=== PATIENT | female | born 1960 | race Caucasian/White ===

== ENCOUNTER 2021-12-29 10:44 | Emergency (ER) | payer OTHER ==
[~2021-12-29] VITALS: Ht 157.5 cm; Wt 82.6 kg
--- NOTE | 2021-12-29 11:03 | NUR ---
[email or web address], medical screening exam in progress
[2021-12-29] MEDS ORDERED: CIPR7.5D EACH EAR (11:20)
--- NOTE | 2021-12-29 11:26 | NUR ---
Patient discharged to home in stable condition and sy gait. Written and verbal after care instructions given. Patient verbalized understanding and compliance of instructions. Stressed follow up with primary doctor and ENT doctor or return to ER for worsening s/s.
== END 2021-12-29 11:26 | disposition home or self-care (01) ==
LOC: ER 10:44
DX: H60.90 Unspecified otitis externa, unspecified ear (principal); Z86.16 Personal history of COVID-19
CPT/HCPCS: A4663

== ENCOUNTER 2025-03-22 13:38 | Emergency (ER) | payer OTHER ==
[~2025-03-22] VITALS: Ht 157.5 cm; Wt 84.4 kg
[~2025-03-22 13:38] MED LIST: CIPR7.5D EACH EAR
[2025-03-22] MEDS ORDERED: FLUT1BLS11 INH (13:51)
[2025-03-22] MEDS ORDERED: LEVO50TA8 PO (13:51)
[2025-03-22] MEDS ORDERED: ALEN70TA80 PO (13:51)
[2025-03-22] MEDS ORDERED: ROSU5TAB13 (13:51)
[2025-03-22] MEDS ORDERED: HYDR25TA86 (13:51)
[2025-03-22] MEDS ORDERED: MONT10TA33 PO (13:51)
[2025-03-22] MEDS ORDERED: PANT40TA49 PO (13:51)
[2025-03-22] MEDS ORDERED: LIDOCAINE 5% PATCH TD ONE (14:43)
[2025-03-22] MEDS ORDERED: KETOROLAC TROMETHAMINE 15 MG INJ ONE (14:43)
[2025-03-22] MEDS ORDERED: ONDANSETRON 4 MG/2 ML VIAL ONE (14:43)
[2025-03-22] MEDS ORDERED: MORPHINE SULFATE 4 MG/1 ML DISP.SYRIN ONE (14:44)
[2025-03-22] MEDS ORDERED: CYCLOBENZAPRINE HCL 10 MG TABLET ONE (14:44)
[2025-03-22] MEDS: IV NORMAL SALINE 1000 ML BAG IV ONE (14:56)
[2025-03-22] MEDS: CYCLOBENZAPRINE HCL 10 MG TABLET PO ONE (14:57)
[2025-03-22] MEDS: ONDANSETRON 4 MG/2 ML VIAL IV ONE (14:57)
[2025-03-22] MEDS: LIDOCAINE 5% PATCH TD ONE (14:57)
[2025-03-22] MEDS: MORPHINE SULFATE 4 MG/1 ML DISP.SYRIN IV ONE (14:57)
[2025-03-22] MEDS: KETOROLAC TROMETHAMINE 15 MG INJ IVP ONE (14:57)
[2025-03-22 15:09] LABS: BASOPHILS # (AUTO) 0.2 K/UL (0.0-0.2); BASOPHILS % (AUTO) 1.8 % (0.0-2.0); DIFFERENTIAL COMMENT 0; EOSINOPHILS # (AUTO) 0.2 K/uL (0.0-0.7); EOSINOPHILS % (AUTO) 2.2 % (0.0-7.0); HEMOGLOBIN 12.5 g/dL (10.9-14.3); LYMPHOCYTES # (AUTO) 2.4 K/uL (0.8-4.8); LYMPHOCYTES % (AUTO) 25.1 % (20.5-51.5); MEAN CORPUSCULAR HEMOGLOBIN 31.9 uug (24.7-32.8); MEAN CORPUSCULAR HGB CONC 36 g/dL (32.3-35.6); MEAN CORPUSCULAR VOLUME 89.7 fL (75.5-95.3); MONOCYTES # (AUTO) 0.9 K/uL (0.1-1.30); NEUTROPHILS # (AUTO) 5.9 K/uL (1.8-8.9); NEUTROPHILS % (AUTO) 61.9 % (38.5-71.5); PLATELET COUNT (AUTO) 280 K/uL (179-408); RED CELL DISTRIBUTION WIDTH 14.5 % (12.3-17.7); WHITE BLOOD COUNT (AUTO) 9.6 K/uL (3.8-11.8)
[2025-03-22] MEDS ORDERED: IBUP-1955 PO (15:09)
[2025-03-22] MEDS ORDERED: LIDO30AD10 TP (15:09)
[2025-03-22] MEDS ORDERED: CYCL5TAB PO (15:09)
[2025-03-22] MEDS ORDERED: HYDR-3974 PO (15:09)
[2025-03-22] MEDS ORDERED: METH4TAB21 PO (15:09)
[2025-03-22 15:10] LABS: CALCIUM 9.1 mg/dL (8.5-10.1); CREATININE 0.8 mg/dL (0.6-1.3); POTASSIUM 4.3 mmol/L (3.5-5.1)
[2025-03-22 16:38] VITALS: BP 149/76; O2SAT 97
== END 2025-03-22 16:39 | disposition home or self-care (01) ==
LOC: ER 13:38
DX: M54.41 Lumbago with sciatica, right side (principal); M54.42 Lumbago with sciatica, left side; M25.552 Pain in left hip; E78.5 Hyperlipidemia, unspecified; I10 Essential (primary) hypertension; Z79.51 Long term (current) use of inhaled steroids; Z79.899 Other long term (current) drug therapy; Z85.038 Personal history of other malignant neoplasm of large intestine; Z86.16 Personal history of COVID-19; Z90.49 Acquired absence of other specified parts of digestive tract; Z88.8 Allergy status to other drugs, medicaments and biological substances; W18.30XA Fall on same level, unspecified, initial encounter; Y93.89 Activity, other specified; Y92.89 Other specified places as the place of occurrence of the external cause; Y99.8 Other external cause status
CPT/HCPCS: 99285; 74176; 96374; 96375; 80048; 82550; 85025; 36415; J1885; J2405; J2270; J7040; A4606; A4663

== ENCOUNTER 2025-06-05 12:38 | Emergency (ER) | payer OTHER ==
[~2025-06-05] VITALS: Ht 157.5 cm; Wt 84.4 kg
[2025-06-05 12:38] VITALS: BP 158/90
[~2025-06-05 12:38] MED LIST changes: +ALEN70TA80 PO; +CYCL5TAB PO; +FLUT1BLS11 INH; +HYDR-3974 PO; +HYDR25TA86; +IBUP-1955 PO; +LEVO50TA8 PO; +LIDO30AD10 TP; +METH4TAB21 PO; +MONT10TA33 PO; +PANT40TA49 PO; +ROSU5TAB13
[2025-06-05] MEDS ORDERED: KETOROLAC TROMETHAMINE 30 MG INJ ONE (13:00)
[2025-06-05] MEDS: KETOROLAC TROMETHAMINE 30 MG INJ IM ONE (13:03)
[2025-06-05] MEDS ORDERED: KETO10TA2 PO (14:02)
[2025-06-05 14:12] VITALS: BP 158/90; TEMP 98.1; O2SAT 99
== END 2025-06-05 14:13 | disposition home or self-care (01) ==
LOC: ER 12:38
DX: M25.561 Pain in right knee (principal); E78.5 Hyperlipidemia, unspecified; E88.810 Metabolic syndrome; I10 Essential (primary) hypertension; J45.909 Unspecified asthma, uncomplicated; Z79.51 Long term (current) use of inhaled steroids; Z79.899 Other long term (current) drug therapy; Z85.038 Personal history of other malignant neoplasm of large intestine; Z86.16 Personal history of COVID-19; Z88.8 Allergy status to other drugs, medicaments and biological substances; Z85.89 Personal history of malignant neoplasm of other organs and systems
CPT/HCPCS: 99283; 73564; 96372; J1885; A4606; A4663